=== PATIENT | male | born 1960 | race Caucasian/White ===

== ENCOUNTER 2022-10-15 08:32 | Outpatient (CLI) | payer BC, SELFPAY ==
[2022-10-15 13:34] LABS: Albumin* 4.4 g/dL (3.3-5.0); Chloride* 100 mmol/L (96-114)
[2022-10-15 13:35] LABS: Potassium* 5.1 mmol/L (3.6-5.1); Sodium* 139 mmol/L (135-149)
[2022-10-15 13:37] LABS: Aspartate Amino Transferase* 38 U/L (12-35); Bilirubin Total* 2.3 mg/dL (0.1-1.5); Blood Urea Nitrogen* 20 mg/dL (7-30); Carbon Dioxide* 34 mmol/L (20-32); Cholesterol* 309 mg/dL (90-199); Creatinine* 0.9 mg/dL (0.5-1.5); Estimated Glomerular Filt Rate 97 ml/min; Total Protein* 7.6 g/dL (6.0-8.3)
[2022-10-15 13:38] LABS: Alanine Aminotransferase* 29 U/L (4-50); Alkaline Phosphatase* 53 U/L (40-150); Calcium* 9.9 mg/dL (8.4-10.6); Glucose* 131 mg/dL (60-115); Triglycerides* 96 mg/dL (40-149)
[2022-10-15 13:57] LABS: HDL Cholesterol* 126 mg/dL (>=40); LDL Cholesterol Calculated 164 mg/dL (<100)
[2022-10-15 14:04] LABS: PSA Screen* 1.75 ng/mL (0.10-4.00)
== END 2022-10-15 08:33 | disposition home or self-care (01) ==
PROVIDERS: PCP Family Medicine; Visit Provider Family Medicine
DX: E03.9 Hypothyroidism, unspecified (principal); E78.00 Pure hypercholesterolemia, unspecified; I10 Essential (primary) hypertension; R10.9 Unspecified abdominal pain; R53.83 Other fatigue; F41.8 Other specified anxiety disorders; Z12.5 Encounter for screening for malignant neoplasm of prostate
CPT/HCPCS: 80053; 80061; 84153; 84443

== ENCOUNTER 2022-12-08 11:34 | Outpatient (CLI) | payer BC, SELFPAY | END 2022-12-08 11:35 | disposition home or self-care (01) | PROVIDERS: PCP Family Medicine; Visit Provider Surgery | DX: Z12.11 Encounter for screening for malignant neoplasm of colon (principal); K63.5 Polyp of colon; K62.1 Rectal polyp; Z86.010 Personal history of colon polyps | CPT/HCPCS: 45385; 88305; 99153; J2250; J3010 ==

== ENCOUNTER 2023-03-19 09:28 | Outpatient (CLI) | payer BC, SELFPAY | END 2023-03-19 09:29 | disposition home or self-care (01) | PROVIDERS: PCP Family Medicine; Visit Provider Family Medicine | DX: R79.89 Other specified abnormal findings of blood chemistry (principal); I10 Essential (primary) hypertension; E78.00 Pure hypercholesterolemia, unspecified; R53.83 Other fatigue; E03.9 Hypothyroidism, unspecified | CPT/HCPCS: 80076; 84443 ==

== ENCOUNTER 2024-05-22 13:23 | Outpatient (CLI) | payer BC, SELFPAY | END 2024-05-22 13:24 | disposition home or self-care (01) | LOC: NFLDREF 05-26 18:41 | PROVIDERS: PCP Family Medicine; Referring Provider Family Medicine; Visit Provider Family Medicine | DX: E11.9 Type 2 diabetes mellitus without complications; R25.1 Tremor, unspecified; E03.9 Hypothyroidism, unspecified; I10 Essential (primary) hypertension; E78.00 Pure hypercholesterolemia, unspecified; Z86.39 Personal history of other endocrine, nutritional and metabolic disease; Z12.5 Encounter for screening for malignant neoplasm of prostate | CPT/HCPCS: 80053; 80061; 82043; 82570; 84443; G0103 ==

== ENCOUNTER 2024-06-26 11:27 | Outpatient (CLI) | payer BC, SELFPAY | END 2024-06-26 11:28 | disposition home or self-care (01) | PROVIDERS: PCP Family Medicine; Visit Provider Family Medicine | DX: I10 Essential (primary) hypertension (principal); R79.89 Other specified abnormal findings of blood chemistry; E03.9 Hypothyroidism, unspecified; E78.00 Pure hypercholesterolemia, unspecified; R53.83 Other fatigue | CPT/HCPCS: 80053; 80061; 84443 ==

== ENCOUNTER 2024-10-02 08:11 | Outpatient (CLI) | payer BC, SELFPAY | END 2024-10-02 08:12 | disposition home or self-care (01) | LOC: NFLDREF 10-04 02:12 | PROVIDERS: PCP Family Medicine; Referring Provider Family Medicine; Visit Provider Family Medicine | DX: E78.00 Pure hypercholesterolemia, unspecified (principal); R79.89 Other specified abnormal findings of blood chemistry | CPT/HCPCS: 80061; 80076 ==